=== PATIENT | female | born 1975 | race Caucasian/White ===

== ENCOUNTER 2016-11-13 13:19 | Emergency (ER) | payer BC ==
[~2016-11-13] VITALS: Ht 180.3 cm; Wt 73.6 kg
[2016-11-13] MEDS ORDERED: SODIUM CHLORIDE FLUSH 10ML SYR IVF ONE (14:00)
[2016-11-13] MEDS ORDERED: SODIUM CHLORIDE 0.9% 1,000ML IVBOLUS ONE (14:00)
[2016-11-13 14:16] LABS: BLOOD UREA NITROGEN 9 mg/dL (7-18)
[2016-11-13 18:34] VITALS: BP 107/62
== END 2016-11-13 20:09 | disposition home or self-care (01) ==
LOC: ED 19:19
DX: O20.0 Threatened abortion (principal); Z3A.01 Less than 8 weeks gestation of pregnancy
CPT/HCPCS: 36415; 76830; 80048; 82040; 84702; 84703; 85025; 86901; 99285